=== PATIENT | female | born 1955 | race Caucasian/White ===

== ENCOUNTER 2022-09-20 10:51 | Emergency (ER) | payer OTHER ==
[~2022-09-20] VITALS: Ht 152.4 cm; Wt 119.3 kg
[2022-09-20 10:56] VITALS: BP 123/93; PULSE 105; RESP 20; TEMP 97.4; O2SAT 95
[2022-09-20] MEDS ORDERED: FLUORESCEIN OPTH STRIP 1 MG OP ONE (12:10)
[2022-09-20] MEDS ORDERED: TETRACAINE HCL/PF 0.5% OPTH 4 ML BTL OP ONE (12:10)
--- NOTE | 2022-09-20 12:13 | NUR ---
PT AMBULATED TO BED 10
[2022-09-20] MEDS ORDERED: OFLO10SO2 RIGHT EYE (12:33)
[2022-09-20 12:40] VITALS: BP 112/88; PULSE 88; RESP 20; TEMP 98; O2SAT 97
--- NOTE | 2022-09-20 12:40 | NUR ---
Patient discharged with v/s stable. Written and verbal after care instructions FOR [facility] given and explained. Patient alert, oriented and verbalized understanding of instructions. Ambulatory with steady gait. All questions addressed prior to discharge. ID band removed. Patient advised to follow up with PMD. Rx of OFLOXACIN given. Opportunity to ask questions provided and answered.
--- NOTE | 2022-09-20 12:45 | NUR ---
The patient's care was reviewed and supervised by MAXIMILIAN ZULETA RN.
== END 2022-09-20 12:40 | disposition home or self-care (01) ==
LOC: MED 10:51
DX: S05.01XA Injury of conjunctiva and corneal abrasion without foreign body, right eye, initial encounter (principal); J45.909 Unspecified asthma, uncomplicated; E78.5 Hyperlipidemia, unspecified; Z79.899 Other long term (current) drug therapy; X58.XXXA Exposure to other specified factors, initial encounter; Y93.89 Activity, other specified; Y92.89 Other specified places as the place of occurrence of the external cause; Y99.8 Other external cause status
CPT/HCPCS: 99283

== ENCOUNTER 2023-07-24 18:31 | Emergency (ER) | payer OTHER ==
[~2023-07-24] VITALS: Ht 152.4 cm; Wt 113.4 kg
[~2023-07-24 18:31] MED LIST: OFLO10SO2 RIGHT EYE
[2023-07-24 18:38] VITALS: BP 139/72; PULSE 92; RESP 18; TEMP 97.3; O2SAT 96
[2023-07-24 19:47] LABS: APPEARANCE,URINE CLEAR (CLEAR); BILIRUBIN,URINE NEGATIVE (NEGATIVE); BLOOD, URINE NEGATIVE (NEGATIVE); COLOR,URINE YELLOW (YELLOW); LEUKOCYTE ESTERASE ,URINE 1+ (NEGATIVE); NITRITE, URINE POSITIVE (NEGATIVE); PROTEIN,URINE NEGATIVE (NEGATIVE); UGLUCOSE NEGATIVE (NEGATIVE)
[2023-07-24 20:16] LABS: BACTERIA,URINE FEW /HPF (None Seen); MUCUS,URINE None Seen /LPF (None Seen); RBC,URINE 0-5 /HPF (0-5); SQUAMOUS EPITHELIAL CELL,UR 4-10 (MOD) /LPF (0-3 (FEW)); YEAST,URINE None Seen /HPF (None Seen)
[2023-07-24 20:17] LABS: TRICHOMONAS,URINE None Seen /HPF (None Seen); WHITE BLOOD CELL CASTS,URINE None Seen /LPF (None Seen)
[2023-07-24] MEDS ORDERED: MORPHINE SULFATE 4 MG/ML SYR ONE (20:24)
[2023-07-24] MEDS ORDERED: CIPR500T4 PO (20:33)
[2023-07-24 20:53] VITALS: BP 138/84; PULSE 77; RESP 19; O2SAT 95
[2023-07-24] MEDS: MORPHINE SULFATE 4 MG/ML SYR IM ONE (20:56)
[2023-07-25] MEDS ORDERED: METH-1681 PO (08:53)
[2023-07-25] MEDS ORDERED: LID5T TP (08:53)
[2023-07-25] MEDS ORDERED: ACET-5629 PO (08:53)
[2023-07-25] MEDS ORDERED: NAPR-337 PO (08:53)
== END 2023-07-24 20:53 | disposition home or self-care (01) ==
LOC: MED 18:31
DX: N39.0 Urinary tract infection, site not specified (principal); M54.50 Low back pain, unspecified; J45.909 Unspecified asthma, uncomplicated; Z79.899 Other long term (current) drug therapy; Z91.013 Allergy to seafood; Z90.49 Acquired absence of other specified parts of digestive tract
CPT/HCPCS: 81001; 87086; 96372; 99283; J2270; 87186

== ENCOUNTER 2023-07-25 05:44 | Emergency (ER) | payer OTHER ==
[~2023-07-25] VITALS: Ht 152.4 cm; Wt 136.1 kg
[~2023-07-25 05:44] MED LIST changes: +CIPR500T4 PO
[2023-07-25 05:45] VITALS: BP 154/74; PULSE 98; RESP 18; TEMP 98; O2SAT 95
[2023-07-25 06:09] VITALS: O2SAT 95
[2023-07-25] MEDS: KETOROLAC 30 MG/ML VIAL IM ONE (07:04)
[2023-07-25] MEDS: oxyCODONE/APAP 5/325 MG 1 TAB TAB PO ONE (07:05)
[2023-07-25] MEDS: ACETAMINOPHEN EXTRA STRENGTH 500 MG TAB PO ONE (07:06)
[2023-07-25] MEDS: LIDOCAINE 5% 1 EA PATCH TP ONE (07:06)
[2023-07-25] MEDS: methocarbamoL 500 MG TAB PO ONE (07:09)
[2023-07-25] MEDS: ONDANSETRON 4 MG ODT PO ONE (07:46)
[2023-07-25] MEDS ORDERED: NAPR-337 PO (08:53)
[2023-07-25] MEDS ORDERED: ACET-5629 PO (08:53)
[2023-07-25] MEDS ORDERED: LID5T TP (08:53)
[2023-07-25] MEDS ORDERED: METH-1681 PO (08:53)
[2023-07-25 09:34] VITALS: BP 142/85; PULSE 86; RESP 18; TEMP 98; O2SAT 99
== END 2023-07-25 09:34 | disposition home or self-care (01) ==
LOC: MED 05:44
DX: G89.29 Other chronic pain (principal); M54.42 Lumbago with sciatica, left side; J45.909 Unspecified asthma, uncomplicated; Z79.1 Long term (current) use of non-steroidal anti-inflammatories (NSAID); Z79.2 Long term (current) use of antibiotics; Z79.899 Other long term (current) drug therapy; Z91.013 Allergy to seafood; Z88.5 Allergy status to narcotic agent
CPT/HCPCS: 96372; 99284; J1885; Q0162